=== PATIENT | female | born 1985 | race African-American/Black ===

== ENCOUNTER 2024-03-11 07:38 | Emergency (ER) | payer MEDICAID, OTHER ==
[~2024-03-11] VITALS: Ht 165.1 cm; Wt 81.6 kg
[2024-03-11 08:01] VITALS: BP 135/83; PULSE 68; RESP 16; TEMP 98.1; O2SAT 98
== END 2024-03-11 08:12 | disposition home or self-care (01) ==
LOC: EMS 07:38
DX: G56.01 Carpal tunnel syndrome, right upper limb (principal)
CPT/HCPCS: 99281; Z7502